=== PATIENT | female | born 1985 | race Caucasian/White ===

== ENCOUNTER 2023-09-20 13:50 | Outpatient (CLI) | payer BC, SELFPAY | END 2023-09-20 13:51 | disposition home or self-care (01) | PROVIDERS: PCP Nurse Practitioner Family; Visit Provider Registered Nurse | DX: Z01.419 Encounter for gynecological examination (general) (routine) without abnormal findings (principal); R53.83 Other fatigue; R63.8 Other symptoms and signs concerning food and fluid intake; N92.0 Excessive and frequent menstruation with regular cycle; Z13.1 Encounter for screening for diabetes mellitus; Z13.6 Encounter for screening for cardiovascular disorders | CPT/HCPCS: 80061; 82306; 84443 ==

== ENCOUNTER 2023-10-03 07:05 | Outpatient (CLI) | payer BC, SELFPAY ==
--- NOTE | 2023-10-03 07:15 | US_ITS ---
Final Report Patient: MANDIE STEVENSON Facility:?[facility] Patient ID:?[id number] Site Patient ID:?[id number]. Site :?[id number] Study:?US Pelvis TA/TV-10/03/2023 7:56:10 AM Ordering Physician:TYREL Final Report: INDICATION: menorrhagia COMPARISON: none TECHNIQUE: 2D benitez scale and color Doppler images were acquired of the pelvis using a transabdominal and transvaginal approach. FINDINGS: Sonographic images demonstrate a normal size and smooth outer contour of the uterus. Uterus measures 9.2 cm in length by 5.2 cm in AP diameter by 6.0 cm in transverse dimension. The myometrium has a normal uniform echotexture. Cervical nabothian cysts. The endometrial lining measures 14 mm in composite thickness. The right ovary measures 2.3 x 1.1 x 1.4 cm in size and the left ovary measures 2.8 x 1.7 x 2.0 cm. The ovaries demonstrate normal arterial and venous blood flow on color Doppler analysis. There are no suspicious fluid collections within the cul-de-sac. IMPRESSION: Endometrial thickness 1.4 cm. No endometrial fluid. No uterine fibroid. Dictated by Luciano Hayes MD @ 10/03/2023 8:13:21 AM (Electronic Signature
== END 2023-10-03 07:06 | disposition home or self-care (01) ==
LOC: US 07:05
PROVIDERS: PCP Nurse Practitioner Family; Visit Provider Registered Nurse
DX: N92.0 Excessive and frequent menstruation with regular cycle (principal); R93.89 Abnormal findings on diagnostic imaging of other specified body structures
CPT/HCPCS: 76830; 76856

== ENCOUNTER 2023-11-30 09:08 | Day surgery (SDC) | payer BC, SELFPAY ==
[2023-11-30 09:34] VITALS: BMI 26.5
[2023-11-30 09:41] VITALS: BP 116/86; PULSE 69; RESP 20; TEMP 36.9; O2SAT 99
[2023-11-30 09:46] LABS: Hemoglobin* 14.8 gm/dL (12.0-16.0)
[2023-11-30] MEDS: LACTATED RINGERS 1000 ML 1,000 ML 100 ML IV (09:50)
[2023-11-30 09:52] LABS: Ur HCG Qualitative* Negative (Negative)
[2023-11-30] MEDS: SODIUM CHLORIDE 0.9 % (FLUSH) 10 ML SYRINGE IVF (09:57)
[2023-11-30 10:04] LABS: Creatinine* 0.7 mg/dL (0.5-1.5); Est. Creatinine Clearance* 101.01; Estimated Glomerular Filt Rate 113 ml/min
--- NOTE | 2023-11-30 10:49 | W.PM.H&PU ---
History & Physical Update History & Physical Update H&P Reviewed and patient assessed: The following changes are noted below H&P Updates: She does not want to do a Mirena IUD placement. She would rather do things in steps and wait to see how much the polypectomy helps her before doing more interventions. We resigned consent form. Unfortunately, her , Yao, reported a poor experience here with her last surgery. Surgery went a lot longer than anticipated and he did not receive and update. He wasn't even able to stay in the waiting room as the surgery center was closing. I reassured Yao that I will call him if surgery goes longer than anticipated. He is also welcome to ask the RN to call into my OR whenever he feels he needs an update.
--- NOTE | 2023-11-30 10:53 | SUR.OPER ---
PATIENT QUESTIONS ANSWERED SATISFACTORILY PREOPERATIVELY. PATIENT BROUGHT TO OR #4 PER CART. Patient positioned supine on OR #4 bed.? Perioperative team supported arms bilaterally on arm boards.? Final approval of positioning by surgeon. CONTINUOUS IRRIGATION OF THE UTERUS WITH NACL DURING PROCEDURE.
--- NOTE | 2023-11-30 11:51 | W.ANESCHARGE ---
Anesthesia Charges Start Date/Time Anesthesia Start Date: 11/30/23 Anesthesia Start Time: 11:24 Stop Date/Time Anesthesia Stop Date: 11/30/23 Anesthesia Stop Time: 12:11
[2023-11-30] MEDS: SILVER NITRATE APPLICATOR 1 EACH STICK..EA. 3 EACH TOPICAL (12:01)
[2023-11-30 12:10] VITALS: BP 93/52; PULSE 70; RESP 16; TEMP 36.4; O2SAT 97
--- NOTE | 2023-11-30 12:13 | W.ANESCHARGE ---
Anesthesia Charges Start Date/Time Anesthesia Start Date: 11/30/23 Anesthesia Start Time: 11:24 Stop Date/Time Anesthesia Stop Date: 11/30/23 Anesthesia Stop Time: 12:11
[2023-11-30 12:25] VITALS: BP 105/77; PULSE 69; RESP 16; O2SAT 96
[2023-11-30 12:40] VITALS: BP 105/73; PULSE 74; RESP 16; O2SAT 100
--- NOTE | 2023-11-30 12:50 | P.GYNPRC_ITS ---
Procedure Note Time Seen by Provider: 11:00 Date of procedure: 11/30/23 Will [facility] bill your pro fee for this procedure?: Yes Procedure Description: Preoperative diagnosis: Kelly is a 38 year-old with abnormal uterine bleeding - polyp Postoperative diagnosis: Same Procedure: Hysteroscopy, Dilation and Curettage, polypectomy using the Truclear incisor Anesthesia: Conscious sedation, paracervical block. Surgeon: Sally Small MD Senior Communications Engineer: None Estimated blood loss: <5 mL Specimen: Endometrial polyp/cervical polyp/curettings to pathology. Findings: Exam under anesthesia: Uterus: anteverted position, less than 5 week sized, mobile, with no masses or nodularity palpable. Uterus sounded to 8 cm. No adnexal masses or nodularity palpable. On hysteroscopy: small polyp at the fundus. Otherwise, normal endometrial cavity. Normal bilateral tubal ostia. Procedure: Kelly was taken to the operating operating room more conscious sedation was found to be adequate. The patient was placed on in the dorsal lithotomy position and an exam under anesthesia was performed with findings stated above. She was then prepped and draped in a normal sterile manner. A bivalve speculum was placed in the vagina. The cervix appears nulliparous. Otherwise no abnormalities. The paracervical block was placed using 1% lidocaine with epinephrine, 5 mL was injected at the 4 and 8 o'clock positions on the cervix. The anterior lip of the cervix was grasped with a long tenaculum. The cervix dilated to Hegar 6. The uterus sounded to 8 cm. The Truclear hysteroscope was advanced into the uterus. A diagnostic hysteroscopy was performed with normal s gonzalo as the insufflation medium. Findings are stated above. The Truclear incisor was then advanced through the camera. The polypectomy and curettage was performed with the incisor. The incisor was then removed. The endometrial cavity appeared normal. Saline deficit at the end of the procedure 500 mL. Total saline used 1260 mL. Silver nitrate was used for hemostasis. The hysteroscope, Allis clamp and speculum were removed from the vaginal canal. The patient tolerated the procedure well. Sponge, lap and instrument counts were correct x2 at the end of the procedure. The patient was taken to the recovery area in stable condition.
[2023-11-30 12:54] VITALS: BP 120/77; PULSE 70; RESP 16; TEMP 36.5; O2SAT 100
== END 2023-11-30 13:11 | disposition home or self-care (01) ==
PROVIDERS: PCP Nurse Practitioner Family; Visit Provider Obstetrics & Gynecology
PROC: 0UDB8ZZ Extraction of Endometrium, Via Natural or Artificial Opening Endoscopic (ICD-10-PCS; CPT 58558; principal; 2023-11-30 10:35)
DX: N84.0 Polyp of corpus uteri (principal); N92.0 Excessive and frequent menstruation with regular cycle; N93.8 Other specified abnormal uterine and vaginal bleeding
CPT/HCPCS: 58558; 00952; 36415; 81025; 82565; 85018; 86850; 86900; 86901; 88305; A9270; J1885; J2250; J2405; J2704; J3010; J7120